=== PATIENT | female | born 1990 | race Caucasian/White ===

== ENCOUNTER 2017-02-22 20:17 | Outpatient (CLI) | payer OTHER, MEDICAID | END 2017-02-22 20:18 | disposition home or self-care (01) | DX: Z01.89 Encounter for other specified special examinations (principal) ==

== ENCOUNTER 2017-11-17 00:32 | Day surgery (SDC) | payer MEDICAID ==
[2017-11-17 01:02] LABS: BILIRUBIN,URINE NEGATIVE (NEGATIVE); GLUCOSE, URINE (UA) NEGATIVE (NEGATIVE); KETONES,URINE (UA) TRACE mg/dL (NEGATIVE); LEUKOCYTE ESTERASE, URINE NEGATIVE (NEGATIVE); NITRITE,URINE NEGATIVE (NEGATIVE); OCCULT BLOOD,URINE LARGE (NEGATIVE); PROTEIN,URINE TRACE mg/dL (NEGATIVE); UROBILINOGEN,URINE 0.2 (NORMAL) E.U./dL (NORMAL)
--- NOTE | 2017-11-17 01:07 | ED Physician Documentation ---
History of Present Illness - Stated complaint Stated Complaint: LT SIDE PAIN - Chief complaint Chief Complaint: Abd Pain - History obtained from History obtained from: Patient (pt is here for left adnexa pain. states that she had an aonset of the pain while she was on the couch. no trauma. states that she had the same pain a couple days ago and took motrin and it took care of the pain. states that tonight the pain was worse. did take motrin prior to arrival so she reports an improvement in the pain, no fevers, no urinary sx, does have vaginal bleeding but has had bleeding for the past month, no control, no hx of , no hx of STD's, is sexually active, no back pain, has had her appy removed.) Review of Systems Constitutional: denies: Fever, Chills Cardiac: denies: Chest pain / pressure, Palpitations Respiratory: denies: Dyspnea, Cough GI: reports: Abdominal Pain. denies: Nausea, Vomiting, Constipation, Diarrhea, Hematemesis : reports: Vaginal bleeding, Irregular menses. denies: Dysuria, Frequency, Hematuria, Control Skin: denies: Rash, Lesions Musculoskeletal: denies: Back pain, Extremity pain, Joint pain Neurologic: denies: Generalized weakness, Headache PD PAST MEDICAL HISTORY - Past Medical History Past Medical History: No Cardiovascular: None Respiratory: None Neuro: None Endocrine/Autoimmune: None GI: None CHILD CARE TEAM LEAD: None : None HEENT: None Psych: None Musculoskeletal: None Derm: None - Past Surgical History Past Surgical History: Yes General: Appendectomy - Present Medications Home Medications: Ambulatory Orders Medication Instructions Recorded Confirmed Sucralfate 1 gm PO ACHS #120 tablet 03/26/16 raNITIdine [Zantac] 150 mg PO BID #60 tablet 03/26/16 - Allergies Allergies/Adverse Reactions: Allergies Allergy/AdvReac Type Severity Reaction Status Date / Time No Known Drug Allergies Allergy Verified 03/26/16 12:49 - Social History Does the pt smoke?: No Smoking Status: Never smoker Does the pt drink ETOH?: Yes Does the pt have substance abuse?: No PD ED PE NORMAL - Vitals Vital signs reviewed: Yes - General General: Alert and oriented X 3, No acute distress, Well developed/nourished - Cardiac Cardiac: RRR, No murmur - Respiratory Respiratory: No respiratory distress, Clear bilaterally - Abdomen Abdomen: Soft, Non distended. No: Non tender (TTP left adnexa, no rebound no guarding. ) - Back Back: No CVA TTP - Derm Derm: Normal color, Warm and dry, No rash - Extremities Extremities: No deformity, No edema - Neuro Neuro: Alert and oriented X 3 Eye Opening: Spontaneous Motor: Obeys Commands Verbal: Oriented GCS Score: 15 - Psych Psych: Normal mood, Normal affect Results - Vitals Vitals: Vital Signs - 24 hr 11/17/17 11/17/17 11/17/17 00:37 02:52 04:39 Temperature 36.8 C 36.5 C Heart Rate 70 75 68 Respiratory 18 16 18 Rate Blood Pressure 130/84 H 122/81 H 121/84 H O2 Saturation 99 98 98 Oxygen O2 Source Room air - Labs Labs: Laboratory Tests 11/17/17 11/17/17 11/17/17 00:55 00:55 01:39 WBC RBC Hgb Hct MCV MCH MCHC RDW Plt Count MPV Neut # Lymph # [place] # Eos # Baso # Absolute Nucleated RBC Nucleated RBC % Sodium Potassium Chloride Carbon Dioxide Anion Gap BUN Creatinine Estimated GFR (MDRD) Glucose Calcium HCG, Quant Urine Color YELLOW Urine Clarity CLEAR Urine pH 6.0 Ur Specific [place] >1.030 >=1.030 H Urine Protein TRACE Urine Glucose (UA) NEGATIVE Urine Ketones TRACE Urine Occult Blood LARGE H Urine Nitrite NEGATIVE Urine Bilirubin NEGATIVE Urine Urobilinogen 0.2 (NORMAL) Ur Leukocyte Esterase NEGATIVE Urine RBC TNTC H Urine WBC 4-5 Ur Squamous Epith Cells MOD Squamous H Urine Bacteria Few Ur Microscopic Review INDICATED Urine Culture Comments NOT INDICATED Urine HCG, Qual POSITIVE Blood Type O POSITIVE Antibody Screen NEGATIVE 11/17/17 11/17/17 11/17/17 01:39 01:39 01:39 WBC 8.9 RBC 4.05 L Hgb 12.5 Hct 36.7 L MCV 90.6 MCH 30.8 MCHC 33.9 RDW 12.6 Plt Count 251 MPV 8.3 Neut # 5.3 Lymph # 2.2 [place] # 1.1 H Eos # 0.2 Baso # 0.1 Absolute Nucleated RBC 0.00 Nucleated RBC % 0.0 Sodium 137 Potassium 3.6 Chloride 102 Carbon Dioxide 25 Anion Gap 10.0 BUN 16 Creatinine 0.8 Estimated GFR (MDRD) 85 L Glucose 133 H Calcium 9.1 HCG, Quant 4.00 Urine Color Urine Clarity Urine pH Ur Specific [place] Urine Protein Urine Glucose (UA) Urine Ketones Urine Occult Blood Urine Nitrite Urine Bilirubin Urine Urobilinogen Ur Leukocyte Esterase Urine RBC Urine WBC Ur Squamous Epith Cells Urine Bacteria Ur Microscopic Review Urine Culture Comments Urine HCG, Qual Blood Type Antibody Screen - Rads (name of study) pelvic US Radiology: Final report received (no IUP or gestational sac seen. complex appearing left adnexal lesion 1.9x1.5x1.8, no free fluid, ovaries are normal. ) PD MEDICAL DECISION MAKING - ED course Complexity details: reviewed results, re-evaluated patient, considered differential, d/w patient ED course: Rh pos so no indication for rhogam. left adnexal mass concerning for ectopic. Discussed case with Dr Benjamin (SCOREBOARD OPERATOR) about the case who stated that the clinical picture sounded like an ectopic. labs ordered. CHILD CARE TEAM LEAD will come in to see the patient. pt was informed of plan. Pt evaluated by OB will admit and go to the OR for scope. pt is stable. Departure - Departure Disposition: ED Place in Observation Clinical Impression: Ectopic Condition: Stable
[2017-11-17 01:08] LABS: CLARITY,URINE CLEAR (CLEAR)
[2017-11-17 01:09] LABS: HCG UR QUAL POSITIVE
[2017-11-17 01:10] LABS: BACTERIA,URINE Few /HPF (None Seen); RBC,URINE TNTC /HPF (0-5); SQUAMOUS EPITHELIAL CELL,UR MOD Squamous (<= Few)
[2017-11-17] MEDS ORDERED: HYDROcod/ACETAM 5/325 MG TABLET PO STA ×2 (02:13→05:25)
[2017-11-17] MEDS ORDERED: ACETAMINOPHEN 325 MG TABLET PO STA (02:20)
--- NOTE | 2017-11-17 04:42 | Ultrasound Preliminary Report ---
Exam: US OB TRANSVAGINAL IMPRESSION: 1. No intrauterine gestational sac demonstrated. Findings represent of uncertain location. 2. There is a complex appearing left adnexal lesion measuring 1.9 x 1.8 x 1.5 cm. Ectopic d ifficult to exclude with certainty. 3. There is no significant free fluid. 4. Ovaries are normal in appearance. [facility] SITE ID: [id number]
--- NOTE | 2017-11-17 04:42 | Ultrasound Preliminary Report ---
Exam: US OB FIRST TRIMESTER IMPRESSION: 1. No intrauterine gestational sac demonstrated. Findings represent of uncertain location. 2. There is a complex appearing left adnexal lesion measuring 1.9 x 1.8 x 1.5 cm. Ectopic d ifficult to exclude with certainty. 3. There is no significant free fluid. 4. Ovaries are normal in appearance. [facility] SITE ID: [id number]
--- NOTE | 2017-11-17 04:44 | Ultrasound Report ---
EXAM: PELVIC ULTRASOUND EXAM DATE: 11/17/2017 04:28 AM. CLINICAL HISTORY: Left sided lower abdominal pain, positive . COMPARISON: None. TECHNIQUE: Realtime transabdominal pelvic scan performed to identify the uterus and adnexa and as an overview of other pelvic structures, followed by transvaginal scan to provide greater detail of the u terus and adnexa, with static image documentation. FINDINGS: LMP: 10/05/2017. Estimated gestational age: 6 weeks 1 days. Estimated due date: 07/12/2018. Uterus: Normal position and configuration of the uterus. Endometrium: No intrauterine gestational sac demonstrated. Endometrium measures 5.0 mm. No suspicious thickening or vascularity. Cervix: No suspicious lesion. Right Ovary: Normal in appearance measuring 2.5 x 2.3 x 1.7 cm. Preserved blood flow. Left Ovary: Normal in appearance measuring 2.4 x 2.1 x 2.0 cm. Nonspecific tiny echogenic focus. Pre served blood flow. Fluid: No signficant free fluid. Other: There is a complex appearing left adnexal lesion, at the site of the patient reported pain. Th is measures 1.9 x 1.5 x 1.8 cm. There is dependent echodensity within this. IMPRESSION: 1. No intrauterine gestational sac demonstrated. Findings represent of uncertain location. 2. There is a complex appearing left adnexal lesion measuring 1.9 x 1.8 x 1.5 cm. Ectopic d ifficult to exclude with certainty. 3. There is no significant free fluid. 4. Ovaries are normal in appearance. [facility] Referring Provider Line: [phone] SITE ID: [id number]
[2017-11-17 05:32] LABS: BASOPHILS # (AUTO) 0.1 10^3/uL (0.0-0.1); EOSINOPHILS # (AUTO) 0.2 10^3/uL (0.0-0.7); EOSINOPHILS % (AUTO) 2.2 %; HGB - HEMOGLOBIN 12.5 g/dL (12.0-16.0); LYMPHOCYTES # (AUTO) 2.2 10^3/uL (1.5-3.5); LYMPHOCYTES % (AUTO) 24.7 %; MEAN CORPUSCULAR HEMOGLOBIN 30.8 pg (27.0-31.0); MEAN CORPUSCULAR HGB CONC 33.9 g/dL (32.0-36.0); MEAN CORPUSCULAR VOLUME 90.6 fL (81.0-99.0); MEAN PLATELET VOLUME 8.3 fL (7.9-10.8); MONOCYTES # (AUTO) 1.1 10^3/uL (0.0-1.0); MONOCYTES % (AUTO) 12.2 %; NEUTROPHILS # (AUTO) 5.3 10^3/uL (1.5-6.6); NEUTROPHILS % (AUTO) 59.9 %; PLT - PLATELET COUNT 251 10^3/uL (130-450); RED BLOOD COUNT 4.05 10^6/uL (4.20-5.40); RED CELL DISTRIBUTION WIDTH 12.6 % (12.0-15.0); WHITE BLOOD COUNT 8.9 x10^3/uL (4.8-10.8)
[2017-11-17 05:37] LABS: CALCIUM 9.1 mg/dL (8.5-10.3); CREATININE 0.8 mg/dL (0.4-1.0)
[2017-11-17] MEDS ORDERED: LACTATED RINGERS 1,000 ML IV SCH (07:00)
[2017-11-17] MEDS ORDERED: MORPHINE 10 MG/ML VIAL IVP STA (07:59)
[2017-11-17] MEDS ORDERED: oxyCODONE/ACET 5/325 Prepack 4 PO STA (08:24)
[2017-11-17] MEDS ORDERED: BUPIVACAINE 0.25%-EPI 1:200000 PF 30 ML VIAL SUBQ ONE ×2 (09:13)
[2017-11-17] MEDS ORDERED: LACTATED RINGERS 1,000 ML IV ONE ×3 (09:14→10:34)
[2017-11-17] MEDS ORDERED: METHYLENE BLUE 100 MG/10 ML VIAL IR ONE (09:42)
[2017-11-17] MEDS ORDERED: ceFAZolin 1 GM VIAL IV ONE (10:00)
[2017-11-17] MEDS ORDERED: ONDANSETRON 4 MG/2 ML VIAL IVP ONE (10:00)
[2017-11-17] MEDS ORDERED: fentaNYL 100 MCG/2 ML VIAL IVP ONE (10:00)
[2017-11-17] MEDS ORDERED: ePHEDrine 50 MG/ML VIAL IVP ONE (10:00)
[2017-11-17] MEDS ORDERED: PROPOFOL 200 MG/20 ML VIAL IVP ONE (10:00)
[2017-11-17] MEDS ORDERED: GLYCOPYRROLATE 1 MG/5 ML VIAL IVP ONE (10:00)
[2017-11-17] MEDS ORDERED: ROCURONIUM 50 MG/5 ML VIAL IVP ONE (10:00)
[2017-11-17] MEDS ORDERED: LIDOCAINE-PF 4% 5 ML AMP SUBQ ONE (10:00)
[2017-11-17] MEDS ORDERED: ONDANSETRON 4 MG/2 ML VIAL ONE (10:28)
[2017-11-17 11:01] VITALS: BP 117/73
--- NOTE | 2017-11-17 17:17 | PREOP HISTORY & PHYSICAL ---
DATE OF SERVICE: 11/17/2017 Physician: Yelena Benjamin DO IDENTIFICATION: This is a 27-year-old G2, P0-0-1-0, with LMP of 10/05/2017. DATE OF ADMISSION AND SURGERY: 11/17/2017 HISTORY OF PRESENT ILLNESS: Charo presents to [facility] Emergency Department this morning with complaints of left lower quadrant pain. Charo states that for the last month she has been having irregular spotting and cramping. However, the cramping was noted to be markedly worse on Friday, 2 days ago. Then, last night when she was watching a movie with her boyfriend, she had an acute onset of sharp pain in the left lower quadrant. It happened about 10:30 or 11:00 at night. She denies any nausea, vomiting, fevers, chills, diarrhea, constipation. She also denies any dizziness or lightheadedness. She currently is accompanied today by her boyfriend, Pillo. PAST MEDICAL HISTORY: None. She denies specifically diabetes, hypertension or thyroid disorder. PAST SURGICAL HISTORY: Open appendectomy at age 12-13. ALLERGIES: NO KNOWN DRUG ALLERGIES. MEDICATIONS: None. SOCIAL HISTORY: She denies any tobacco use. She does consume alcohol on a rare basis. She does smoke marijuana on a recreational basis. 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 She is expected to do a double shift tomorrow as well as on Friday. She will need a note. Again, her boyfriend is Pillo. She does have a primary care physician nor a form setter supervisor. Her pharmacy of choice is [facility] in [place]. PAST SURGICAL HISTORY: 1. Therapeutic age 17. Charo states that both she and her boyfriend , Pillo, are actively trying to get . GYNECOLOGICAL HISTORY: She states that all Pap smears have been within normal limits. She denies any sexually transmitted diseases. Her menses have been on a monthly basis and she bleeds for 5 to 7 days. Charo does have heavy vaginal bleeding and pretty significant dysmenorrhea. Usually over-the- counter analgesics take care of most of her pain, but she does state that she has gone to the Emergency Department in the past for her pain. FAMILY HISTORY: Denies any female carcinoma. REVIEW OF SYSTEMS: Negative unless otherwise stated. PHYSICAL EXAMINATION: OBJECTIVE: VITAL SIGNS: Temperature 36.5, pulse 68, respirations 18, blood pressure 121/ 84. GENERAL: hCaro is a well-developed, well-nourished, female, in no apparent distress. She is alert and oriented x3. She is very easy to speak to and intelligent. HEENT: Within normal limits. She does wear glasses. HEART: Regular. No murmurs or rubs. LUNGS: Lungs are clear to auscultation bilaterally. ABDOMEN: Soft, nontender. No peritoneal signs. LABORATORY DATA: Show that she has a white count of 8.9, H and H 12.5 and 36.7 , platelet 251. Quantitative hCG is 2044. Urinalysis is remarkable for specific gravity 1.03. On 11/17/2017, pelvic ultrasound shows that by LMP of 10/05/2017, she should be 6 weeks 1 day, with EDC of 07/12/2018. Uterus is normal position and configuration. No intrauterine gestational sac. Endometrium measures 5.0 mm. No suspicious thickening or vascularity. Right ovary, normal appearance measuring 2.5 x 2.3 x 1.7 cm. Left ovary, normal appearance measuring 2.4 x 2.1 x 2.0 cm. Nonspecific tiny echogenic focus. Fluid, no significant free fluid. There is a complex-appearing left adnexal lesion at the site of the patient's reported pain. This measured 1.9 x 1.5 x 1.8 cm. There is dependent echodensity within this. ASSESSMENT: 1. A 27-year-old G2, P0-0-1-0, with a left ectopic . PLAN: 1. I discussed with Charo her options personally to conservatively manage this and watch her hCGs. 2. Option two would be to do methotrexate with serial hCGs until resolution of the . With respect to options 1 and 2, there is a chance of ruptured ectopic , which may lead to blood transfusion or to . 3. Finally, Option 3 would be to proceed to a laparoscopic left salpingectomy. This procedure would resolve the potential of a ruptured ectopic, but also occurs risks of hemorrhage, infection and damage to surrounding organs, which may be inadvertent laceration, cauterization and ligation of the adjacent intestines, bladder or ureters. I would take close attention to Charo's right fallopian tube as she definitely does want to conceive. I briefly discussed with her that it may be a good idea in the future that she pursue a hysterosalpingogram in order to ensure the patency of the right fallopian tube. After I discussed with Charo the risks, benefits, alternatives, indications, expectations and options 1, 2 and 3, she verbally desired to proceed with laparoscopic salpingectomy. Consent forms have been signed. I will go ahead and proceed to surgery, we may be a little delayed in that the patient is currently stable and the road conditions are a little treacherous given the recent snowfall overnight. TD: 11/17/2017 12:20 DERREK
--- NOTE | 2017-11-18 07:34 | OPERATIVE REPORT ---
DATE OF SERVICE: 11/17/2017 Physician: Rojelio Acevedo MD PREOPERATIVE DIAGNOSIS: Unruptured, left ectopic . POSTOPERATIVE DIAGNOSIS: Unruptured, left ectopic . PROCEDURE PERFORMED: Left salpingectomy with chromopertubation of the fallopian tube. SURGEON: Rojelio Acevedo MD ANESTHESIA: General via endotracheal tube. ESTIMATED BLOOD LOSS: Less than 5 mL FINDINGS: Upon entering the abdominal cavity, there was no evidence of any hemoperitoneum. There was evidence of a swelling which was discolored roughly 2 cm from the cornu. This was dark colored compatible with a left ectopic . Upon performing chromopertubation, there was evidence of excellent patency of the right fallopian tube. DESCRIPTION OF PROCEDURE: Following adequate endotracheal anesthesia, the patient was placed in the supine position in Henry stirrups. SCDs were placed and following a timeout, which the patient was identified as well as concern addressed, she was prepped and draped in the usual fashion. A speculum was placed in the vagina. The cervix was visualized, grasped with single-tooth tenaculum. A uterine manipulator with acorn was placed in the cervix and an extension of IV tubing was placed at the end of this. The gang drill operator's gloves were changed and at this point, following local anesthesia with 0.25% Marcaine with epinephrine, an incision was made in the subumbilical area with a #11 blade. A 5 mm trocar was placed in the subumbilical area under direct visualization. At this point, the trocar was removed and the insufflation was accomplished and there was evidence of a good pneumoperitoneum. Following this, left and right lower quadrant ports were placed, both under direct visualization following local anesthesia with 0.25% Marcaine and then a skin incision with a # 11 blade. The right lower quadrant trocar was placed through her previous appendix scar to try and minimize any further scars in the abdominal cavity. The pelvis was inspected with the aforementioned left ectopic . There is no hemoperitoneum noted at this time. The appendix was surgically absent from her previous appendectomy. The right fallopian tube appeared to be free of any disease. A LigaSure was then used to cauterize and transect the left fallopian tube as well as the mesosalpinx. This was done in total, there was evidence of good hemostasis at the suture line. The fallopian tube was then grasped and brought up through the right lower incision. This was done with several pieces as there was some difficulty pulling the ectopic through the port; however, this did remove the entire ectopic and tube in toto. At this point, dilute methylene blue was then instilled in the uterus and there was evidence of good flow through the right fallopian tube with good spill into the abdominal cavity. An gymnastics instructor aspirator was then placed in the abdominal cavity and the methylene blue was totally irrigated and aspirated out. The left cornu of the uterus was inspected as well as the mesosalpinx. No bleeding was noted at this time. The CO2 was then allowed to escape. Both ports were watched as they were removed. The CO2 was then allowed to escape from the subumbilical port and then this port was likewise removed. All 3 incisions were closed using 4-0 Monocryl subcuticular and then Dermabond was used to close the incision itself. The instruments were then removed from the vagina. The patient tolerated the procedure well and was taken to recovery in stable condition. Sponge and needle counts were correct. TD: 11/18/2017 08:24 DERREK
== END 2017-11-17 06:01 | disposition home or self-care (01) ==
LOC: ED 00:32 → SDS 06:00
PROVIDERS: ATTEND Obstetrics & Gynecology
PROC: 0UT64ZZ Resection of Left Fallopian Tube, Percutaneous Endoscopic Approach (ICD-10-PCS; 2017-11-17)
PROC: 3E1P38Z Irrigation of Female Reproductive using Irrigating Substance, Percutaneous Approach (ICD-10-PCS; 2017-11-17)
PROC: 10T24ZZ Resection of Products of Conception, Ectopic, Percutaneous Endoscopic Approach (ICD-10-PCS; principal; 2017-11-17 08:00)
DX: O00.102 Left tubal pregnancy without intrauterine pregnancy (principal)
CPT/HCPCS: 36415; 58350; 59151; 76801; 76817; 80048; 81001; 81025; 84702; 85025; 86850; 86900; 86901; 88305; 96374; 99284; A9270; J7120; 81003; 87086

== ENCOUNTER 2017-12-05 05:27 | Emergency (ER) | payer MEDICAID ==
[2017-12-05 05:36] VITALS: BP 122/70
--- NOTE | 2017-12-05 06:12 | ED Physician Documentation ---
PD HPI HEADACHE - Stated complaint Stated Complaint: HEADACHE - Chief complaint Chief Complaint: Neuro - History obtained from History obtained from: Patient - History of Present Illness Timing - onset: Enter time (14:00), Yesterday Pain level now: 8 Worst headache ever?: Worst headache ever? Location: Front, Right, Left Quality: Throbbing, Aching Associated symptoms: Nausea, Vomiting. No: Fever, Stiff neck, Weakness, Numbness, Eye pain, Vision changes Improved by: Rest, Dark room, Quiet Worsened by: Noise Similar symptoms before: Has not had sx before Recently seen: Not recently seen - Additional information Additional information: c/o bifrontal headache since yesterday afternoon which has spread to bilateral parietal area. (+) nausea and vomiting. Took ibuprofen without relief, and friend gave patient percocet which also did not provide adequate relief. Review of Systems Constitutional: denies: Fever, Chills, Sweats Eyes: reports: Reviewed and negative GI: reports: Nausea, Vomiting. denies: Abdominal Pain Musculoskeletal: denies: Neck pain, Back pain Neurologic: reports: Headache. denies: Generalized weakness, Focal weakness, Numbness PD PAST MEDICAL HISTORY - Past Medical History Cardiovascular: None Respiratory: None Neuro: None Endocrine/Autoimmune: None GI: None SKI MOLDER: None : None HEENT: None Psych: None Musculoskeletal: None Derm: None - Past Surgical History Past Surgical History: Yes General: Appendectomy /SKI MOLDER: Oophrectomy - Present Medications Home Medications: Ambulatory Orders Medication Instructions Recorded Confirmed Sucralfate 1 gm PO ACHS #120 tablet 03/26/16 raNITIdine [Zantac] 150 mg PO BID #60 tablet 03/26/16 Promethazine [Phenergan] 25 - 50 mg PO Q6H PRN #10 tab 12/05/17 - Allergies Allergies/Adverse Reactions: Allergies Allergy/AdvReac Type Severity Reaction Status Date / Time No Known Drug Allergies Allergy Verified 03/26/16 12:49 - Social History Does the pt smoke?: No Smoking Status: Never smoker Does the pt drink ETOH?: Yes Does the pt have substance abuse?: No - Immunizations Immunizations are current?: Yes PD ED PE NORMAL - Vitals Vital signs reviewed: Yes - General General: Alert and oriented X 3, Well developed/nourished, Other (appears uncomfortable, mild-moderate painful distress) - HEENT HEENT: PERRL, EOMI, Moist mucous membranes - Neck Neck: Supple, no meningeal sign - Cardiac Cardiac: RRR, No murmur - Respiratory Respiratory: No respiratory distress, Clear bilaterally - Neuro Neuro: Alert and oriented X 3, senior bioinformatics scientist 2-12 intact, No motor deficit, No sensory deficit, Normal speech Eye Opening: Spontaneous Motor: Obeys Commands Verbal: Oriented GCS Score: 15 Results - Vitals Vitals: Vital Signs - 24 hr 12/05/17 05:34 Temperature 36.5 C Heart Rate 75 Respiratory 18 Rate Blood Pressure 122/70 O2 Saturation 99 Oxygen O2 Source Room air - Rads (name of study) CT head Radiology: Prelim report reviewed, See rad report PD MEDICAL DECISION MAKING - ED course Complexity details: reviewed results, re-evaluated patient, considered differential, d/w patient ED course: Patient expressed preference to avoid morphine, as she had unpleasant side effects with this in the past; for this reason, she also wanted to avoid dilaudid (although has not had dilaudid before). Given IM benadryl, phenergan, and toradol and, on reevaluation, reported resolution of her headache. Departure - Departure Disposition: 01 Home, Self Care Clinical Impression: Headache Condition: Good Instructions: ED Cephalgia Unspecified Follow-Up: JAMES Henderson [Provider Group] Prescriptions: Promethazine [Phenergan] 25 - 50 mg PO Q6H PRN #10 tab PRN Reason: Nausea / Vomiting Comments: If your headache returns, you can take ibuprofen, benadryl, and phenergan; this is the same combination of medications that worked on your headache in the emergency department (except the ibuprofen instead of the toradol that we used here). Discharge Date/Time: 12/05/17 07:55
[2017-12-05] MEDS ORDERED: KETOROLAC 60 MG/2 ML VIAL IM STA (06:31)
[2017-12-05] MEDS ORDERED: PROMETHAZINE 25 MG/1 ML VIAL IM STA (06:31)
[2017-12-05] MEDS ORDERED: diphenhydrAMINE INJ 50 MG/ML VIAL IM STA (06:31)
--- NOTE | 2017-12-05 07:15 | CT Report ---
EXAM: CT HEAD EXAM DATE: 12/05/2017 06:56 AM. CLINICAL HISTORY: Headache. COMPARISON: None. TECHNIQUE: Multiaxial CT images were obtained from the foramen magnum to the vertex. Reformats: Coron al. IV contrast: None. In accordance with CT protocol optimization, one or more of the following dose reduction techniques w ere utilized for this exam: automated exposure control, adjustment of mA and/or KV based on patient s ize, or use of iterative reconstructive technique. FINDINGS: Parenchyma: No intraparenchymal hemorrhage. No evidence of mass, midline shift, or CT findings of inf arction. Charles-white differentiation is distinct. Extraaxial Spaces: Normal for age. No subdural or epidural collections identified. Ventricles: Normal in size and position. Sinuses and Orbits: Imaged paranasal sinuses, orbits, and mastoids show no significant abnormality. Bones: No evidence of fracture or calvarial defect. Other: None. IMPRESSION: 1. No acute intracranial abnormality is identified. [facility] Referring Provider Line: [phone] SITE ID: [id number]
== END 2017-12-05 07:55 | disposition home or self-care (01) ==
LOC: ED 05:27
DX: R51 Headache (principal)
CPT/HCPCS: 70450; 96372; 99283; 99284

== ENCOUNTER 2018-03-19 08:00 | Outpatient (CLI) | payer MEDICAID ==
[2018-03-19 19:07] LABS: BASOPHILS % (AUTO) 0.3 %; EOSINOPHILS # (AUTO) 0.1 10^3/uL (0.0-0.7); EOSINOPHILS % (AUTO) 0.5 %; HGB - HEMOGLOBIN 12.4 g/dL (12.0-16.0); LYMPHOCYTES # (AUTO) 1.9 10^3/uL (1.5-3.5); LYMPHOCYTES % (AUTO) 15.9 %; MEAN CORPUSCULAR HEMOGLOBIN 29.6 pg (27.0-31.0); MEAN CORPUSCULAR HGB CONC 33.5 g/dL (32.0-36.0); MEAN CORPUSCULAR VOLUME 88.4 fL (81.0-99.0); MEAN PLATELET VOLUME 8.5 fL (7.9-10.8); MONOCYTES # (AUTO) 0.8 10^3/uL (0.0-1.0); MONOCYTES % (AUTO) 6.8 %; NEUTROPHILS # (AUTO) 9.1 10^3/uL (1.5-6.6); NEUTROPHILS % (AUTO) 76.5 %; PLT - PLATELET COUNT 263 10^3/uL (130-450); WHITE BLOOD COUNT 11.9 x10^3/uL (4.8-10.8)
[2018-03-19 19:39] LABS: BILIRUBIN,URINE NEGATIVE (NEGATIVE); GLUCOSE, URINE (UA) NEGATIVE (NEGATIVE); KETONES,URINE (UA) TRACE mg/dL (NEGATIVE); LEUKOCYTE ESTERASE, URINE NEGATIVE (NEGATIVE); NITRITE,URINE NEGATIVE (NEGATIVE); OCCULT BLOOD,URINE TRACE-INTA (NEGATIVE); PROTEIN,URINE NEGATIVE (NEGATIVE); UROBILINOGEN,URINE 0.2 (NORMAL) E.U./dL (NORMAL)
[2018-03-19 19:52] LABS: BACTERIA,URINE None Seen /HPF (None Seen); CLARITY,URINE CLOUDY (CLEAR); RBC,URINE 0-5 /HPF (0-5); SQUAMOUS EPITHELIAL CELL,UR NONE SEEN (<= Few)
[2018-03-19 19:54] LABS: AMORPHOUS SEDIMENT,UR Marked /LPF
[2018-03-20 13:41] LABS: HIV AG/AB 4TH GEN NON-REACTIVE (NON-REACTIVE)
[2018-03-20 14:12] LABS: HEPATITIS B SURFACE ANTIGEN NON-REACTIVE (NON-REACTIVE); HEPATITIS C ANTIBODY NON-REACTIVE (NON-REACTIVE)
== END 2018-03-19 08:01 | disposition home or self-care (01) ==
LOC: LAB.N 08:00
PROVIDERS: ATTEND Obstetrics & Gynecology
DX: Z34.81 Encounter for supervision of other normal pregnancy, first trimester (principal)
CPT/HCPCS: 36415; 81001; 81599; 85025; 86592; 86762; 86803; 86850; 86900; 86901; 87340; 87389

== ENCOUNTER 2018-03-31 14:25 | Observation (INO) | payer MEDICAID ==
[2018-03-31] MEDS ORDERED: PROMETHAZINE 25 MG/1 ML VIAL IM PRN (15:35)
[2018-03-31] MEDS ORDERED: ONDANSETRON 4 MG/2 ML VIAL IVP PRN (15:35)
[2018-03-31] MEDS ORDERED: ACETAMINOPHEN 325 MG TABLET PO PRN (15:35)
[2018-03-31] MEDS ORDERED: SODIUM CHLORIDE FLUSH 0.9% 10 ML SYRINGE IVP PRN (15:35)
[2018-03-31] MEDS: LACTATED RINGERS 1,000 ML IV SCH ×2 (16:29→21:36)
[2018-03-31 16:51] LABS: ALBUMIN/GLOBULIN RATIO 1.1 (1.0-2.2); BILIRUBIN,TOTAL 0.6 mg/dL (0.2-1.0); CALCIUM 9.7 mg/dL (8.5-10.3); CREATININE 0.6 mg/dL (0.4-1.0); TOTAL PROTEIN 7.5 g/dL (6.7-8.2)
[2018-03-31 16:58] LABS: BASOPHILS % (AUTO) 0.3 %; EOSINOPHILS # (AUTO) 0.1 10^3/uL (0.0-0.7); EOSINOPHILS % (AUTO) 0.8 %; HGB - HEMOGLOBIN 12.8 g/dL (12.0-16.0); LYMPHOCYTES # (AUTO) 2.2 10^3/uL (1.5-3.5); LYMPHOCYTES % (AUTO) 19.7 %; MEAN CORPUSCULAR HEMOGLOBIN 29.4 pg (27.0-31.0); MEAN CORPUSCULAR HGB CONC 33.3 g/dL (32.0-36.0); MEAN CORPUSCULAR VOLUME 88.1 fL (81.0-99.0); MEAN PLATELET VOLUME 8.1 fL (7.9-10.8); MONOCYTES % (AUTO) 8.9 %; NEUTROPHILS # (AUTO) 7.8 10^3/uL (1.5-6.6); NEUTROPHILS % (AUTO) 70.3 %; PLT - PLATELET COUNT 252 10^3/uL (130-450); RED BLOOD COUNT 4.34 10^6/uL (4.20-5.40); RED CELL DISTRIBUTION WIDTH 12.8 % (12.0-15.0); WHITE BLOOD COUNT 11.1 x10^3/uL (4.8-10.8)
[2018-03-31 17:42] LABS: BILIRUBIN,URINE NEGATIVE (NEGATIVE); GLUCOSE, URINE (UA) NEGATIVE (NEGATIVE); KETONES,URINE (UA) NEGATIVE (NEGATIVE); LEUKOCYTE ESTERASE, URINE NEGATIVE (NEGATIVE); NITRITE,URINE NEGATIVE (NEGATIVE); OCCULT BLOOD,URINE NEGATIVE (NEGATIVE); PH,URINE 6.5 PH (5.0-7.5); PROTEIN,URINE NEGATIVE (NEGATIVE); UROBILINOGEN,URINE 0.2 (NORMAL) E.U./dL (NORMAL)
[2018-03-31 18:18] LABS: AMORPHOUS SEDIMENT,UR Few /LPF; BACTERIA,URINE None Seen /HPF (None Seen); CLARITY,URINE CLEAR (CLEAR); RBC,URINE 0-5 /HPF (0-5); SQUAMOUS EPITHELIAL CELL,UR FEW Squamous (<= Few)
--- NOTE | 2018-03-31 19:06 | HISTORY & PHYSICAL EXAMINATION ---
DATE OF SERVICE: 03/31/2018 Physician: Rojelio Rios MD DIAGNOSES 1. Unremitting vomiting with dehydration. 2. Hyperemesis gravidarum. 3. Ten-week gestation. HISTORY OF THE PRESENT ILLNESS: Patient is a 28-year-old , 3, para 0-0-2-0, woman at 10 weeks' gestation, who has been plagued with hyperemesis for the last 2 weeks. In the last 36 hours, she has not been able to hold any solids or fluids down. She is weak and fatigued. She was found to be dehydrated and spilling ketones, 3+ in the office. She was using paula for an emesis aid. She was prescribed Diclegis by Dr. Acevedo 2 weeks ago, but unfortunately the pharmacy has had none to dispense for her. She reports vomiting bouts 4-5 times a day, nonbloody and nonbilious. Prior to , she had a history of GERD. She has no history of gallbladder disease or irritable bowel disease. PAST SURGICAL HISTORY: Left laparoscopic salpingectomy for ectopic [address] Acevedo, appendectomy. ALLERGIES: MEDICATIONS 1. Paula. 2. Diclegis prescribed but not obtained. FAMILY HISTORY: Negative. 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 No drug or tobacco use currently. Prior TCH use. REVIEW OF SYSTEMS GENERAL: Malaise, weakness, fatigue. HEENT: Negative. HEART: Negative. PULMONARY: Negative. GI: Persistent nausea reference. SKIN: Negative. MUSCULOSKELETAL: Negative. NEUROLOGIC: Negative. PHYSICAL EXAMINATION VITAL SIGNS: Weight 138.6, posted. HEENT: Supple neck. No thyromegaly. Dentition in good repair. Pale appearance. LUNGS: Clear to auscultation. HEART: Regular. No murmur, no gallop. GI: No hepatosplenomegaly. Slight distention with tympany. No focal tenderness noted. PELVIC: Formal pelvic exam not done because no true abdominal pain or pelvic complaints. EXTREMITIES: Moves all 4 extremities well. SKIN: Decreased skin turgor. NEUROLOGIC: Grossly intact. Admission labs pending. ASSESSMENT: Clinically, patient is significantly dehydrated and requires IV fluid support and IV emetics. We hope to break the retch-gag cycle. PLAN 1. Lactated Ringer's at 200 an hour. 2. Check electrolytes and CBC. 3. Zofran, loading dose 8 mg, followed by 4 mg p.r.n. 4. Phenergan 25 mg IM every 6 hours p.r.n. 5. Supportive care. TD: 03/31/2018 19:04 MTDD
[2018-03-31] MEDS: SODIUM CHLORIDE FLUSH 0.9% 10 ML SYRINGE IVP SCH (21:36)
[2018-03-31] MEDS: FAMOTIDINE 20 MG TABLET PO SCH (21:36)
[2018-04-01] MEDS: SODIUM CHLORIDE FLUSH 0.9% 10 ML SYRINGE IVP SCH ×2 (01:53→09:43)
[2018-04-01] MEDS: LACTATED RINGERS 1,000 ML IV SCH ×2 (02:00→06:58)
[2018-04-01 08:12] VITALS: BP 102/60
[2018-04-01] MEDS: FAMOTIDINE 20 MG TABLET PO SCH (08:15)
[2018-04-01] MEDS ORDERED: POLYETHYLENE GLYCOL 3350 17 GM PACKET PO SCH (09:00)
--- NOTE | 2018-04-01 09:15 | PROVIDER PROGRESS NOTE ---
Subjective - Prog Note Date Prog Note Date: 04/01/18 Prog Note Time: 08:00 - Subjective Pt reports feeling: Improved (Patient currently sitting up in bed with her significant other in attendance. She is no longer retching or vomiting. Her nausea has subsided and she is hungry. She has not defecated. Her diet is being advanced to regular and the IV fluids temporarily hep-locked.) Objective - Vital Signs/Intake & Output Vital Signs: Vital Signs x48h Temp Pulse Resp BP Pulse Ox 04/01/18 08:09 98.3 F 68 16 102/60 98 Intake & Output: Intake & Output 03/29/18 03/30/18 03/31/18 04/01/18 23:59 23:59 23:59 23:59 Intake Total 1000 1873.333 Output Total 200 700 Balance 800 1173.333 - Lab Results Fish Bones: 03/31/18 16:30 03/31/18 16:30 Other Labs: Lab Results x24hrs 03/31/18 03/31/18 03/31/18 Range/Units 17:25 16:30 16:30 WBC 11.1 H (4.8-10.8) x10^3/uL RBC 4.34 (4.20-5.40) 10^6/uL Hgb 12.8 (12.0-16.0) g/dL Hct 38.2 (37.0-47.0) % MCV 88.1 (81.0-99.0) fL MCH 29.4 (27.0-31.0) pg MCHC 33.3 (32.0-36.0) g/dL RDW 12.8 (12.0-15.0) % Plt Count 252 (130-450) 10^3/uL MPV 8.1 (7.9-10.8) fL Neut # 7.8 H (1.5-6.6) 10^3/uL Lymph # 2.2 (1.5-3.5) 10^3/uL [place] # 1.0 (0.0-1.0) 10^3/uL Eos # 0.1 (0.0-0.7) 10^3/uL Baso # 0.0 (0.0-0.1) 10^3/uL Absolute Nucleated RBC 0.00 x10^3/uL Nucleated RBC % 0.0 /100WBC Sodium 133 L (135-145) mmol/L Potassium 3.7 (3.5-5.0) mmol/L Chloride 99 L (101-111) mmol/L Carbon Dioxide 25 (21-32) mmol/L Anion Gap 9.0 (6-13) BUN 9 (6-20) mg/dL Creatinine 0.6 (0.4-1.0) mg/dL Estimated GFR (MDRD) 117 (>89) Glucose 89 (70-100) mg/dL Calcium 9.7 (8.5-10.3) mg/dL Total Bilirubin 0.6 (0.2-1.0) mg/dL AST 17 (10-42) IU/L ALT 13 (10-60) IU/L Alkaline Phosphatase 52 (42-121) IU/L Total Protein 7.5 (6.7-8.2) g/dL Albumin 4.0 (3.2-5.5) g/dL Globulin 3.5 (2.1-4.2) g/dL Albumin/Globulin Ratio 1.1 (1.0-2.2) Urine Color YELLOW Urine Clarity CLEAR (CLEAR) Urine pH 6.5 (5.0-7.5) PH Ur Specific [place] <=1.005 (1.002-1.030) Urine Protein NEGATIVE (NEGATIVE) mg/dL Urine Glucose (UA) NEGATIVE (NEGATIVE) mg/dL Urine Ketones NEGATIVE (NEGATIVE) mg/dL Urine Occult Blood NEGATIVE (NEGATIVE) Urine Nitrite NEGATIVE (NEGATIVE) Urine Bilirubin NEGATIVE (NEGATIVE) Urine Urobilinogen 0.2 (NORMAL) (NORMAL) E.U./dL Ur Leukocyte Esterase NEGATIVE (NEGATIVE) Urine RBC 0-5 (0-5) /HPF Urine WBC 0-3 (0-5) /HPF Ur Squamous Epith Cells FEW Squamous (<= Few) Amorphous Sediment Few /LPF Urine Bacteria None Seen (None Seen) /HPF Urine Culture Comments NOT INDICATED
--- NOTE | 2018-04-01 09:20 | DISCHARGE SUMMARY ---
"Discharge Summary Admit Date: 03/31/18 Discharge Date: 04/01/18 Discharging Provider: GIL SCHWARTZ Code Status: Attempt Resuscitation Condition at Discharge: Good Discharge Disposition: 01 Home, Self Care - DIAGNOSES Admission Diagnoses: Unremitting nausea and vomiting; hyperemesis gravidarum; hypo-natremia - HPI History of Present Illness: Charo Cadet is a 28-year-old 2 para 0010 (ectopic 1) who is at 10 weeks gestational age. She reports nausea and vomiting controlled; hyponatremia corrected patient was admitted after 36 hours unremitting nausea and vomiting. She was weak and symptomatic with dehydration. Reference my detailed H&P - CONSULTS | PROCEDURES Procedures: None - HOSPITAL COURSE Hospital Course: Patient was admitted and placed in an n.p.o. status. She was given IV Zofran and IM Phenergan. She remained on GI rest for roughly 24 hours before regaining appetite and the ability to hold down solid foods. She was counseled on hyperemesis diet. She was strongly advised to pickle cutter the Diglesis that was previously prescribed to her last week. - ALLERGIES Allergies/Adverse Reactions: Allergies Allergy/AdvReac Type Severity Reaction Status Date / Time No Known Drug Allergies Allergy Verified 03/26/16 12:49 - MEDICATIONS Home Medications: Ambulatory Orders Medication Instructions Recorded Confirmed Sucralfate 1 gm PO ACHS #120 tablet 03/26/16 04/01/18 raNITIdine [Zantac] 150 mg PO BID #60 tablet 03/26/16 04/01/18 Promethazine [Phenergan] 25 - 50 mg PO Q6H PRN #10 tab 12/05/17 04/01/18 - PHYSICAL EXAM AT DISCHARGE General Appearance: positive: No acute distress Eyes Bilateral: positive: No scleral icterus ENT: positive: No signs of dehydration Neck: positive: Nml inspection Respiratory: positive: No respiratory distress Cardiovascular: positive: Regular rate & rhythm Abdomen: positive: Non-tender, No organomegaly, Nml bowel sounds, No distention Back: positive: Nml inspection Skin: positive: Color nml Extremities: positive: Non-tender, No pedal edema Neurologic/Psychiatric: positive: Oriented x3, CN's nml (2-12), Motor nml, Sensation nml, Mood/affect nml - LABS Result Diagrams: 03/31/18 16:30 03/31/18 16:30 - FOLLOW UP Follow Up: [facility] Warning and callback symptoms reviewed."
--- NOTE | 2018-04-01 13:22 | Discharge Plan ---
Discharge Plan Disposition: 01 Home, Self Care Condition: Good Diet: Regular Activity Restrictions: Activity as Tolerated Shower Restrictions: No Driving Restrictions: No Weight Bearing: Full Weight Follow-Up Care: Dietitian (Please arrange a consult with the dietitian to help her understand a hyperemesis diet) No Smoking: If you smoke, Please STOP! Call for help. Follow-up with: Rojelio Rios MD [Provider Admit Priv/Credential] -
== END 2018-04-01 14:12 | disposition home or self-care (01) ==
LOC: WFO 14:25 → MS2 14:28
PROVIDERS: ADMIT Obstetrics & Gynecology; ATTEND Obstetrics & Gynecology
DX: O21.1 Hyperemesis gravidarum with metabolic disturbance (principal); T45.0X6A Underdosing of antiallergic and antiemetic drugs, initial encounter; Z91.138 Patient's unintentional underdosing of medication regimen for other reason; Z3A.10 10 weeks gestation of pregnancy
CPT/HCPCS: 80053; 81001; 85025; 96360; 96361; 96372; A9270; G0378; G0379; J7120; 87086

== ENCOUNTER 2018-06-08 12:06 | Outpatient (CLI) | payer MEDICAID ==
--- NOTE | 2018-06-08 16:28 | Ultrasound Report ---
Procedure Date: 06/08/2018 Accession Number: [id number] / [id number] Procedure: US - OB Detailed Eval CPT Code: FULL RESULT: EXAM: OB Detailed Eval DATE: 06/08/2018 2:19 PM CLINICAL HISTORY: ENCOUNTER FOR SCREENING,UNSPECIFIED TECHNIQUE: Real-time scanning was performed with provider relations representative static images obtained. COMPARISON: None LAST MENSTRUAL PERIOD: 01/18/2018 Clinical Age: 20 weeks 1 days US Age: 19 weeks 3 days EFW Hadlock: 292 grams Heart Rate: 152 bpm EDC: 10/25/2018 US EDC: 10/30/2018 BPD Hadlock: 20 weeks 1 days; Mean mm 47 HC Hadlock: 19 weeks 2 days; Mean mm 166 AC Hadlock: 19 weeks 2 days; Mean mm 140 FL Hadlock: 19 weeks 3 days; Mean mm 31 Presentation: Variable Placental Location: Anterior Cervical Length: 4.7 cm Amniotic Fluid: HERON Subjectively normal cm; MVP 4.9 cm FINDINGS: There is a single viable intrauterine gestation in variable position with an anterior placenta and no evidence of previa with a heart rate of 152 bpm. The three-vessel cord is centrally located within the normal-appearing placenta. There is a normal nuchal fold thickness of 2.7 mm. The following anatomic structures were visualized and appear normal: The intracranial contents, including the ventricles and posterior fossa; the lips and orbits; the spine; the heart, including 4 chamber view and outflow tracts, and diaphragm; the abdominal contents, including the stomach, the bilateral kidneys, and urinary bladder, as well as a normal 3-vessel cord insertion; 4 limbs. The maternal uterus appears unremarkable with a 4.7 cm long closed cervix and normal adnexa bilaterally. There is no free pelvic fluid. IMPRESSION: Single viable intrauterine with a sonographic age of 19 weeks and 3 days.
== END 2018-06-08 12:07 | disposition home or self-care (01) ==
LOC: DI 12:06
PROVIDERS: ATTEND Obstetrics & Gynecology
DX: Z36.9 Encounter for antenatal screening, unspecified (principal)
CPT/HCPCS: 76811

== ENCOUNTER 2018-08-04 08:18 | Outpatient (CLI) | payer MEDICAID | END 2018-08-04 08:19 | disposition home or self-care (01) | LOC: LAB 08:18 | PROVIDERS: ATTEND Obstetrics & Gynecology | DX: Z36.9 Encounter for antenatal screening, unspecified (principal) | CPT/HCPCS: 36415; 82950; 85018; 85027; 86850 ==

== ENCOUNTER 2018-08-16 02:03 | Emergency (ER) | payer OTHER, MEDICAID ==
--- NOTE | 2018-08-16 03:52 | ED Physician Documentation ---
PD HPI UPPER EXT INJURY - Stated complaint Stated Complaint: L HAND/FINGER PX - Chief complaint Chief Complaint: Ext Problem - Additonal information Additional information: 28-year-old female presents the emergency department For removal of her wedding ring. The patient has been unable to remove her ring secondary to swelling. The patient has had increased swelling with her which is being followed by her OXYHYDROGEN WELDER. The patient denies any other symptoms. Symptoms are described as mild. No relieving factors. Review of Systems Eyes: denies: Loss of vision Ears: denies: Ear pain Throat: denies: Sore throat Musculoskeletal: reports: Extremity pain. denies: Neck pain Neurologic: denies: Generalized weakness PD PAST MEDICAL HISTORY - Past Medical History Cardiovascular: None Respiratory: None Endocrine/Autoimmune: None GI: None NUCLEAR PLANT TECHNICAL ADVISOR: None : None HEENT: None Psych: None Musculoskeletal: None Derm: None - Past Surgical History Past Surgical History: Yes General: Appendectomy /NUCLEAR PLANT TECHNICAL ADVISOR: Oophrectomy - Present Medications Home Medications: Ambulatory Orders Medication Instructions Recorded Confirmed Sucralfate 1 gm PO ACHS #120 tablet 03/26/16 04/01/18 raNITIdine [Zantac] 150 mg PO BID #60 tablet 03/26/16 04/01/18 Promethazine [Phenergan] 25 - 50 mg PO Q6H PRN #10 tab 12/05/17 04/01/18 - Allergies Allergies/Adverse Reactions: Allergies Allergy/AdvReac Type Severity Reaction Status Date / Time No Known Drug Allergies Allergy Verified 03/26/16 12:49 - Social History Does the pt smoke?: No Smoking Status: Never smoker Does the pt drink ETOH?: Yes Does the pt have substance abuse?: No - Immunizations Immunizations are current?: Yes PD ED PE NORMAL - General General: Alert and oriented X 3 - HEENT HEENT: Atraumatic, PERRL, EOMI, Ears normal - Derm Derm: Normal color - Extremities Extremities: No deformity, Other (The patient's wedding ring is stuck on her left ring finger. The patient has normal range of motion of the fingers and normal radial pulse and brisk cap refill.) - Neuro Neuro: Alert and oriented X 3, Normal speech - Psych Psych: Normal mood Results - Vitals Vitals: Vital Signs - 24 hr 08/16/18 08/16/18 02:14 03:03 Temperature 36.4 C L Heart Rate 92 119 H Respiratory 14 16 Rate Blood Pressure 133/90 H 124/86 H O2 Saturation 99 99 Oxygen O2 Source Room air Procedures - FB removal FB location: Other (The patient's wedding ring on her left ring finger was removed) Removal method: Other (A ring cutter was used) FB removal aftercare: No complications, Patient tolerated well, Removed successfully PD MEDICAL DECISION MAKING - ED course ED course: The patient's ring was successfully removed. The patient appears to be much more comfortable after removal of the ring. The initial blood pressure was elevated most likely secondary to pain and now her blood pressure has normalized. The patient's OB is following her for the swelling. Presently the patient appears appropriate for discharge and ongoing outpatient management. - Sepsis Event Vital Signs: Vital Signs - 24 hr 18 08/16/18 02:14 03:03 Temperature 36.4 C L Heart Rate 92 119 H Respiratory 14 16 Rate Blood Pressure 133/90 H 124/86 H O2 Saturation 99 99 Oxygen O2 Source Room air Departure - Departure Disposition: 01 Home, Self Care Clinical Impression: Ring or other jewelry causing external constriction, initial encounter Condition: Good Instructions: ED Sprain Finger Comments: Please follow-up with your OB as scheduled this Friday. Please return to the emergency department for any worsening or any concerns.
[2018-08-16 04:02] VITALS: BP 124/82
== END 2018-08-16 04:02 | disposition home or self-care (01) ==
LOC: ED 02:03
DX: O99.89 Other specified diseases and conditions complicating pregnancy, childbirth and the puerperium (principal); R22.32 Localized swelling, mass and lump, left upper limb; W49.04XA Ring or other jewelry causing external constriction, initial encounter
CPT/HCPCS: 99282; 99283

== ENCOUNTER 2018-08-18 07:57 | Outpatient (CLI) | payer OTHER, MEDICAID | END 2018-08-18 07:58 | disposition home or self-care (01) | LOC: LAB 07:57 | PROVIDERS: ATTEND Obstetrics & Gynecology | DX: Z36.9 Encounter for antenatal screening, unspecified (principal) | CPT/HCPCS: 36415; 82951; 82952 ==